=== PATIENT | male | born 1965 | race Caucasian/White ===

== ENCOUNTER 2025-10-05 06:27 | Day surgery (SDC) | payer BC, SELFPAY | END 2025-10-05 08:29 | disposition home or self-care (01) | LOC: GI 06:27 | PROVIDERS: ATTENDING PHYSICIAN Internal Medicine | DX: Z12.11 Encounter for screening for malignant neoplasm of colon (principal); K62.1 Rectal polyp; K57.30 Diverticulosis of large intestine without perforation or abscess without bleeding; Z86.0100 Personal history of colon polyps, unspecified | CPT/HCPCS: 45380; 88305 ==